=== PATIENT | female | born 1950 | race Caucasian/White ===

== ENCOUNTER 2016-04-30 10:47 | Outpatient (CLI) | payer OTHER ==
--- NOTE | 2016-04-30 11:47 | DIAGNOSTIC IMAGING REPORT ---
PROCEDURE: DEXA BONE DENSITY STUDY CLINICAL INDICATION: SCREENING COMPARISON: DEXA dated 06/24/2003 FINDINGS: LUMBAR SPINE: Bone mineral density 0.976 g/cm2, T score -0.6 normal which represents a 13.1% decrease from the previous study LEFT HIP: Bone mineral density 0.538 g/cm2, T score -3.3 osteoporosis which represents a 31.9% decrease from the previous study LEFT FEMORAL NECK: Bone mineral density 0.473 g/cm2, T score -3.4 osteoporosis which represents a 34.8% decrease from the previous study FRACTURE RISK CALCULATION ( when applicable): 10-year fracture risk of a major osteoporotic fracture and of a hip fracture not reported because some T-score at or below -2.5. (T score greater or equal to -1.0 to: NORMAL) (T score from -1.1 to -2.4: OSTEOPENIA) (T score ess than or equal to -2.5: OSTEOPOROSIS) IMPRESSION: 1. Osteoporosis hip and femoral neck with 31 and 34% respective decreases in bone mineral density since the previous study
--- NOTE | 2016-04-30 13:00 | DIAGNOSTIC IMAGING REPORT ---
PROCEDURE: MG BILATERAL SCREENING W/CAD INDICATION: Screening. Family history breast carcinoma (mother). TECHNIQUE: Bilateral CC and MLO digital views. COMPARISON: Compared to 11/22/2011, 11/21/2005, and 08/07/2004. FINDINGS: Computer-aided detection applied. Mildly dense with a few dystrophic calcifications. There is a vague group of amorphous calcifications in the far lateral left breast (0230 hours, posterior third). IMPRESSION: 1. There is a vague group of calcifications in the upper outer left breast. Further mammographic views (true lateral view, exaggerated CC view, CC and MLO magnification views) are recommended. In addition, left breast ultrasound is recommended. RESULT CODE: 0- Incomplete; needs additional evaluation. A. A negative report should not delay biopsy if a dominant or clinically suspicious mass is present. 10-15% of cancers are not identified by x-ray. B. A negative report may reinforce clinical impression. C. Adenosis and dense breasts may obscure an underlying neoplasm. D. False positive reports average 6-10%. E.. A yearly screening mammogram is recommended. A reminder letter will be scheduled.
== END 2016-04-30 23:00 ==
LOC: MAM SRH 10:47
DX: Z12.31 Encounter for screening mammogram for malignant neoplasm of breast (principal); Z80.3 Family history of malignant neoplasm of breast; M81.8 Other osteoporosis without current pathological fracture

== ENCOUNTER 2016-06-11 11:03 | Outpatient (CLI) | payer OTHER ==
--- NOTE | 2016-06-11 16:04 | DIAGNOSTIC IMAGING REPORT ---
PROCEDURE: MG UNILATERAL DIAG-LT W/CAD INDICATION: Follow-up left breast calcifications. TECHNIQUE: True lateral digital view of left breast. In addition, magnification CC and MLO views were obtained of the lateral left breast (region of clinical concern). Finally, high-resolution left breast ultrasound was performed (18 mHz ). COMPARISON: Comparison is made to screening mammogram study on 04/30/2016. FINDINGS: MAMMOGRAM: Computer-aided detection applied. Mildly dense parenchymal pattern. Confirmation of a small group of benign-appearing microcalcifications in the lateral left breast (0300 position, posterior third) BREAST ULTRASOUND: Normal parenchyma. No evidence of mass or cyst. Case discussed with . IMPRESSION: 1. Confirmation of a small group of benign-appearing calcifications in the lateral left breast. While there is no evidence of underlying abnormality, early follow-up left mammogram in 6 months is recommended to confirm stability. 2. Findings discussed with the patient. RESULT CODE: 3- Probably benign findings - initial short-interval follow-up suggested. A. A negative report should not delay biopsy if a dominant or clinically suspicious mass is present. 10-15% of cancers are not identified by x-ray. B. A negative report may reinforce clinical impression. C. Adenosis and dense breasts may obscure an underlying neoplasm. D. False positive reports average 6-10%. E.. A yearly screening mammogram is recommended. A reminder letter will be scheduled.
== END 2016-06-11 23:00 ==
LOC: MAM SRH 11:03
DX: R92.1 Mammographic calcification found on diagnostic imaging of breast (principal)